=== PATIENT | male | born 2000 | race Caucasian/White ===

== ENCOUNTER 2023-12-27 18:00 | Emergency (ER) | payer BC | END 2023-12-27 19:52 | disposition home or self-care (01) | LOC: MW.ED 18:00 | DX: M25.572 Pain in left ankle and joints of left foot (principal); Z75.8 Other problems related to medical facilities and other health care; X50.1XXA Overexertion from prolonged static or awkward postures, initial encounter | CPT/HCPCS: 73610-26-LT; 73610-LT; 99283 ==